=== PATIENT | male | born 1940 | race Caucasian/White ===

== ENCOUNTER 2017-09-11 20:27 | Emergency (ER) | payer MEDICARE, BC ==
[~2017-09-11] VITALS: Ht 165.1 cm; Wt 63.2 kg
[~2017-09-11 20:27] MED LIST: ASCO-96 PO; ATEN50TA41 PO; FERR325T18 PO; FINA5TAB4 PO; TAMS0.4C2 PO
[2017-09-11] MEDS ORDERED: OMEP-110 PO (20:55)
[2017-09-11] MEDS ORDERED: IBUPROFEN 200 MG TABLET PO ONE (21:00)
[2017-09-11] MEDS ORDERED: LIDOCAINE 1%, 20ML ONE (21:11)
[2017-09-11] MEDS ORDERED: LIDOCAINE 1%, 20ML INFIL ONE (21:30)
[2017-09-11] MEDS ORDERED: IBUPROFEN 200 MG TABLET ONE (21:39)
[2017-09-11] MEDS ORDERED: HYDROcodone/APAP 5/325 TABLET ONE (21:39)
[2017-09-11] MEDS ORDERED: HYDROcodone/APAP 5/325 TABLET PO ONE (22:00)
[2017-09-11] MEDS ORDERED: BACITRACIN ZINC OINT 500U/GM, 0.9 GM ONE (22:06)
[2017-09-11 22:27] VITALS: BP 110/64
== END 2017-09-11 22:36 | disposition home or self-care (01) ==
LOC: ED 22:30
DX: S61.213A Laceration without foreign body of left middle finger without damage to nail, initial encounter (principal); W10.0XXA Fall (on)(from) escalator, initial encounter; Y93.89 Activity, other specified; Y92.59 Other trade areas as the place of occurrence of the external cause; Y99.9 Unspecified external cause status
CPT/HCPCS: 12001; 93005; 99284